=== PATIENT | male | born 1990 | race Caucasian/White ===

== ENCOUNTER 2016-07-05 09:06 | Emergency (ER) | payer SELFPAY ==
[~2016-07-05] VITALS: Ht 167.6 cm; Wt 79.0 kg
[2016-07-05 09:12] VITALS: BP 126/87; PULSE 92; RESP 18; TEMP 99.3; O2SAT 99
[2016-07-05] MEDS ORDERED: NAPR500T PO (10:26)
[2016-07-05] MEDS ORDERED: PROM6.256 PO (10:26)
--- NOTE | 2016-07-05 10:30 | PD ---
HPI Chief Complaint: Cold / Flu Symptoms Time Seen by Provider: 09:38 Travel History International Travel<30 days: No Contact w/Intl Traveler<30days: No Traveled to known affect area: No History of Present Illness HPI This is a 26-year-old male who presents to the emergency department with body aches, productive cough, subjective fevers, sore throat and some abdominal pain that started yesterday. His symptoms have been constant throughout the night and worsening this morning. His sister is also sick with similar symptoms. [facility] Past Medical History ADD: Yes Asthma: Yes Anxiety: No Depression: No Cancer: No Cardiovascular Problems: No Diminished Hearing: No Endocrine: No Genitourinary: No Immune Disorder: No Musculoskeletal: No Neurologic: No Psychiatric: No Reproductive: No Respiratory: No Influenza Vaccination: No Past Surgical History Appendectomy: Yes Other Surgery: Yes (APPENDECTOMY 11/05/2010) Social History Alcohol Use: Yes (2X WK) Tobacco Use: Yes (1ppd) Substance Use: Yes ("WEED") Allergies-Medications (Allergen,Severity, Reaction): Coded Allergies: Percocet (Verified Adverse Reaction, Intermediate, Rash, 07/05/16) Reported Meds & Prescriptions Reported Meds & Active Scripts Active No Active Prescriptions or Reported Medications Review of Systems Except as stated in HPI: all other systems reviewed are Neg Physical Exam Narrative GENERAL: Well-nourished, well-developed patient. SKIN: Warm and dry. HEAD: Normocephalic. ENT: Posterior pharyngeal erythema with swelling of the tonsils and tender anterior cervical lymphadenopathy EYES: No scleral icterus. No injection or drainage. NECK: Supple, trachea midline. CARDIOVASCULAR: Regular rate and rhythm without murmurs. RESPIRATORY: Breath sounds equal bilaterally. No accessory muscle use. GASTROINTESTINAL: Abdomen soft, non-tender, nondistended. MUSCULOSKELETAL: No cyanosis, or edema. Data Data Last Documented VS Vital Signs Date Time Temp Pulse Resp B/P Pulse Ox O2 Delivery O2 Flow Rate FiO2 07/05/16 09:18 99 07/05/16 09:12 99.3 92 18 126/87 Orders Group A Rapid Strep Screen (07/05/16 09:45) Strep Culture (Group A) (07/05/16 09:45) MDM Medical Decision Making Medical Screen Exam Complete: Yes Emergency Medical Condition: Yes Interpretation(s) Strep negative Differential Diagnosis Strep pharyngitis, viral pharyngitis, influenza, pneumonia, bronchitis Narrative Course This is a 26-year-old male who presents the emergency department with myalgias, fevers, sore throat and rhinorrhea. He had a significant amount of erythema and his tonsils and posterior pharynx. Strep was negative. I did offer the patient influenza testing however he doesn't have insurance and doesn't think he would be able to afford Tamiflu if he were positive. He is nontoxic appearing. I think he is appropriate for outpatient symptomatic management. Patient will be discharged home. Diagnosis Primary Impression: Viral syndrome Patient Instructions: General Instructions Additional Instructions: If you develop severe chest pain, shortness of breath, sweating, lightheadedness , dizziness or difficulty breathing return to the emergency department immediately. Followup with your primary care physician in 2-3 days if your symptoms are not resolved. Med/Other Pt SpecificInfo: Prescription(s) given Scripts Promethazine-Codeine Liq 6.25-10 Mg/5 Ml Syrp5 Ml PO Q4H PRN (COUGH AND/OR COLD SYMPTOMS) #100 ML Prov:Geneva Alejandro MD 07/05/16 Naproxen 500 Mg [id number] Mg PO BID PRN (PAIN SCALE 4 TO 10) #20 TAB Prov:Geneva Alejandro MD 07/05/16 Disposition: 01 DISCHARGE HOME Condition: Stable Geneva Alejandro MD Jul 05, 2016 09:46
== END 2016-07-05 10:43 | disposition home or self-care (01) ==
LOC: PHEFT 09:06
DX: B34.9 Viral infection, unspecified (principal); F17.210 Nicotine dependence, cigarettes, uncomplicated
CPT/HCPCS: 87081; 87880; 99283

== ENCOUNTER 2017-05-25 15:46 | Emergency (ER) | payer SELFPAY ==
[~2017-05-25] VITALS: Ht 167.6 cm; Wt 84.0 kg
[~2017-05-25 15:46] MED LIST: NAPR500T2 PO; PROM6.256 PO
[2017-05-25 15:53] VITALS: BP 159/101; PULSE 92; RESP 16; TEMP 98.4; O2SAT 97
--- NOTE | 2017-05-25 17:17 | PD ---
HPI Chief Complaint: Cold / Flu Symptoms Time Seen by Provider: 17:05 Travel History International Travel<30 days: No Contact w/Intl Traveler<30days: No Traveled to known affect area: No History of Present Illness HPI 27-year-old male here for evaluation of cough and body aches since Tuesday. He reports multiple members of his household with similar symptoms. Subjective fever and chills. Symptoms severity is moderate. No aggravating or alleviating factors. PFSH Past Medical History ADD: Yes Asthma: Yes Anxiety: No Depression: No Cancer: No Cardiovascular Problems: No Diminished Hearing: No Endocrine: No Genitourinary: No Immune Disorder: No Implanted Vascular Access Dvce: No Musculoskeletal: No Neurologic: No Psychiatric: No Reproductive: No Respiratory: No Tetanus Vaccination: < 5 Years Past Surgical History Appendectomy: Yes Other Surgery: Yes (APPENDECTOMY 11/05/2010) Social History Alcohol Use: Yes (2X WK) Tobacco Use: Yes (1ppd) Substance Use: Yes ("WEED") Allergies-Medications (Allergen,Severity, Reaction): Coded Allergies: acetaminophen (Unverified Adverse Reaction, Intermediate, Rash, 05/25/17) oxycodone (Unverified Adverse Reaction, Intermediate, Rash, 05/25/17) Reported Meds & Prescriptions Reported Meds & Active Scripts Active No Active Prescriptions or Reported Medications Review of Systems General / Constitutional: Positive: Fever, Chills Respiratory: Positive: Cough Physical Exam Narrative GENERAL: Alert male. Nontoxic appearing. SKIN: Warm and dry. HEAD: Normocephalic. EYES: No scleral icterus. No injection or drainage. NECK: Supple, trachea midline. No JVD or lymphadenopathy. No meningismus. CARDIOVASCULAR: Regular rate and rhythm without murmurs, gallops, or rubs. RESPIRATORY: Breath sounds equal bilaterally. No accessory muscle use. GASTROINTESTINAL: Abdomen soft, non-tender, nondistended. MUSCULOSKELETAL: No cyanosis, or edema. BACK: Nontender without obvious deformity. No CVA tenderness. Data Data Last Documented VS Vital Signs Date Time Temp Pulse Resp B/P (MAP) Pulse Ox O2 Delivery O2 Flow Rate FiO2 05/25/17 15:53 98.4 92 16 159/101 (120) 97 Orders Orders Influenzae A/B Antigen (05/25/17 17:09) [facility] Medical Decision Making Medical Screen Exam Complete: Yes Emergency Medical Condition: Yes Differential Diagnosis Influenza, pneumonia, viral illness Narrative Course 27 -year-old male with viral-like symptoms as 1 day. Vital signs are stable. Nontoxic appearing. Influenza is negative. Diagnosis Primary Impression: Viral syndrome Referrals: [facility] Additional Instructions: Take [id number] ibuprofen 800 mg every 6 hours as needed for pain and fever. Rest and stay well hydrated. Scripts No Active Prescriptions or Reported Meds Disposition: 01 DISCHARGE HOME Condition: Stable Catrachita Cantu May 25, 2017 17:17
== END 2017-05-25 18:10 | disposition home or self-care (01) ==
LOC: PHEFT 15:46
DX: B34.9 Viral infection, unspecified (principal); F98.8 Other specified behavioral and emotional disorders with onset usually occurring in childhood and adolescence; J45.909 Unspecified asthma, uncomplicated; F17.200 Nicotine dependence, unspecified, uncomplicated; Z88.6 Allergy status to analgesic agent; Z88.5 Allergy status to narcotic agent
CPT/HCPCS: 87804; 99283